=== PATIENT | female | born 1990 | race Native Hawaiian/Other Pacific Islander ===

== ENCOUNTER 2017-08-04 07:20 | Outpatient (CLI) | payer BC ==
[~2017-08-04 07:20] MED LIST: ADDERALL XR20 MG OR; BUDE1AER3 INH; CEFD300C2 PO; CHLOSUS43 PO; DULO30CA OR; FLONASE0.05 %; FLOXIN OT; MEDROL DOSEPAK4 MG OR; ZOLP10TA2 PO
== END 2017-08-04 18:54 | disposition home or self-care (01) ==
LOC: LABW 07:20
DX: Z32.00 Encounter for pregnancy test, result unknown (principal)
CPT/HCPCS: 36415; 82670; 84144; 84702

== ENCOUNTER 2017-08-06 08:02 | Outpatient (CLI) | payer BC | END 2017-08-06 19:32 | disposition home or self-care (01) | LOC: LABW 08:02 | DX: O09.00 Supervision of pregnancy with history of infertility, unspecified trimester (principal); Z31.49 Encounter for other procreative investigation and testing | CPT/HCPCS: 36415; 84702; 86850; 86900; 86901 ==

== ENCOUNTER 2019-09-27 07:05 | Outpatient (CLI) | payer OTHER | END 2019-09-27 20:09 | disposition home or self-care (01) | LOC: LABW 07:05 | DX: Z32.00 Encounter for pregnancy test, result unknown (principal) | CPT/HCPCS: 36415; 82670; 84144; 84702 ==

== ENCOUNTER 2019-09-29 07:18 | Outpatient (CLI) | payer OTHER | END 2019-09-29 21:07 | disposition home or self-care (01) | LOC: LABW 07:18 | DX: Z31.49 Encounter for other procreative investigation and testing (principal); O09.00 Supervision of pregnancy with history of infertility, unspecified trimester | CPT/HCPCS: 36415; 84702; 86850; 86900; 86901 ==

== ENCOUNTER 2019-10-18 07:58 | Outpatient (CLI) | payer OTHER | END 2019-10-18 19:03 | disposition home or self-care (01) | LOC: LABW 07:58 | DX: Z31.49 Encounter for other procreative investigation and testing (principal) | CPT/HCPCS: 36415; 84702 ==

== ENCOUNTER 2019-10-28 07:06 | Outpatient (CLI) | payer OTHER | END 2019-10-28 19:10 | disposition home or self-care (01) | LOC: LABW 07:06 | DX: Z31.49 Encounter for other procreative investigation and testing (principal) | CPT/HCPCS: 36415; 84702 ==

== ENCOUNTER 2020-08-07 07:05 | Outpatient (CLI) | payer OTHER | END 2020-08-07 22:04 | disposition home or self-care (01) | LOC: LABW 07:05 | PROVIDERS: ATTEND Obstetrics & Gynecology Reproductive Endocrinology | DX: Z32.00 Encounter for pregnancy test, result unknown (principal) | CPT/HCPCS: 36415; 82670; 84144; 84702 ==

== ENCOUNTER 2020-08-09 07:10 | Outpatient (CLI) | payer OTHER | END 2020-08-09 19:20 | disposition home or self-care (01) | LOC: LABW 07:10 | PROVIDERS: ATTEND Obstetrics & Gynecology Reproductive Endocrinology | DX: Z31.49 Encounter for other procreative investigation and testing (principal); O09.00 Supervision of pregnancy with history of infertility, unspecified trimester | CPT/HCPCS: 36415; 84702 ==

== ENCOUNTER 2023-03-03 08:25 | Outpatient (CLI) | payer OTHER | END 2023-03-03 19:19 | disposition home or self-care (01) | LOC: LABW 08:25 | PROVIDERS: ATTEND Obstetrics & Gynecology Reproductive Endocrinology | DX: Z32.00 Encounter for pregnancy test, result unknown (principal) | CPT/HCPCS: 36415; 82670; 84144; 84702 ==

== ENCOUNTER 2023-03-05 07:09 | Outpatient (CLI) | payer OTHER | END 2023-03-05 18:56 | disposition home or self-care (01) | LOC: LABW 07:09 | PROVIDERS: ATTEND Obstetrics & Gynecology Reproductive Endocrinology | DX: Z31.49 Encounter for other procreative investigation and testing (principal); O09.00 Supervision of pregnancy with history of infertility, unspecified trimester | CPT/HCPCS: 36415; 84702 ==